=== PATIENT | male | born 1990 | race Caucasian/White ===

== ENCOUNTER → 2021-01-28 | Outpatient (CLI) | payer OTHER ==
[~2021-01-28] MED LIST: LORATIDINE 10 M10 M1 PO; PROTONIX40 M2 PO
== END ==
LOC: LAB 10:26
PROVIDERS: ATTEND Student in an Organized Health Care Education/Training Program
DX: Z20.822 Contact with and (suspected) exposure to COVID-19 (principal)

== ENCOUNTER 2021-01-31 06:06 | Observation (INO) | payer OTHER ==
[~2021-01-31] VITALS: Ht 180.3 cm; Wt 93.9 kg
--- NOTE | ~2021-01-31 | O ---
[facility] [place] [address] OPERATIVE REPORT Name: FRANCINE BAILEY Room #: 440-P [facility] MVonnie#: [id number] Admission: 01/31/21 Attend Phys: Job Garcia, Discharge: Date of : 89 Report #: [id number] THIS REPORT FOR: cc: Nicholas Holloway MD, Marc K. MD Patterson,Job Art MD ~ DATE OF SERVICE: 01/31/2021 PREOPERATIVE DIAGNOSIS: Hiatal hernia with gastroesophageal reflux disease. POSTOPERATIVE DIAGNOSIS: Hiatal hernia with gastroesophageal reflux disease. OPERATION: Laparoscopic repair of hiatal hernia without mesh implantation with placement of LINX antireflux device. SURGEON: Job Garcia MD ANESTHESIA: General. ESTIMATED BLOOD LOSS: Minimal. SPECIMENS: None. DESCRIPTION OF PROCEDURE: After informed consent was obtained, the patient was brought to the operating room and placed supine. SCDs were placed and working, preoperative antibiotics were administered, general anesthesia was induced. The abdomen was prepped and draped in the usual sterile fashion. A 1 mm incision was made in the left upper quadrant. Veress needle was inserted. Pneumoperitoneum was established. A periumbilical 5 mm trocar was then placed under direct vision. I then placed a left-sided 5 mm trocar. Two right-sided trocars were placed under direct vision. A Lincoln retractor was placed in the epigastrium. The Lincoln retractor then reflected the liver anteriorly and superiorly. This allowed visualization of the hiatus. The pars flaccida was incised. Cautery dissection was made up to the right norris, which was identified. Phrenoesophageal ligament was incised with the LigaSure. The left norris was identified. A Lam drain was placed around the distal esophagus. I then was able to manipulate the distal esophagus and perform a full mediastinal dissection, thereby reducing the hiatal hernia. There was approximately 2 cm of intraabdominal esophagus. A window was made between the esophagus and the posterior vagus nerve. Cruroplasty was then performed. This was done with a single 2-0 Ethibond suture reapproximating the crura posteriorly. A LINX sizer was placed. This was a size 15 LINX. The sizer was removed. A 15 LINX was placed between the posterior vagus nerve and the esophagus. It was [address] [address] OPERATIVE REPORT Name: LEOFRANCINE NELIA Room #: 440-P [facility] Norman De La Rosa#: [id number] Admission: 01/31/21 Attend Phys: Job Garcia, Discharge: Date of : 89 Report #: [id number] clasped together. The length was not too loose or tight. The liver was then placed back into its normal position. The ports were then removed under direct vision. The skin was closed with 4-0 Monocryl. Incisions were sealed with Steri-Strips. COMPLICATIONS: None. DISPOSITION: The patient was taken to recovery in satisfactory condition. By: [id number] Job Garcia MD /nt
[2021-01-31 06:57] LABS: HEMATOCRIT 43.3 % (42.0-52.0); HEMOGLOBIN 15.1 gm/dL (14.0-18.0); MCH 30.3 pg (26.0-34.0); MCHC 34.9 g/dL (28.0-37.0); MCV 86.6 fL (80.0-100.0); RDW 12.9 % (10.5-14.5); WBC 9.3 thou/uL (4.0-11.0)
[2021-01-31 07:11] LABS: CALCIUM 9.4 mg/dL (8.5-10.1); CREATININE 1.3 mg/dL (0.7-1.3); POTASSIUM 3.9 mmol/L (3.5-5.1)
[2021-01-31 07:22] VITALS: BP 139/96
--- NOTE | 2021-01-31 10:59 | NUR ---
ASSUMED PT CARE AT 1040 ON ARRIVAL FROM PACU. PT IS HERE FOR OBSERVATION AFTER HERNIA REPAIR. PT IS A/OX4 AND HAS NO COMPLAINTS AT THIS TIME. BP IS HYPERTENSIVE. LAP SITES X6 IN ABD WITH DERMABOND AND STERISTRIPS. ASSESSMENTS OTHERWISE UNREMARKABLE. IV IN LT FA WITH D5 1/2NS AT 100ML/HR. FALL PRECAUTIONS ARE IN PLACE. MEDS AND OTHER TX GIVEN NEEDED AND SCHEDULED.
[2021-01-31 19:40] VITALS: BP 143/90
--- NOTE | 2021-02-01 01:59 | NUR ---
ASSESSED AT START OF SHIFT. PT RESTING IN BED. C/O PAIN PO HYDROCODONE GIVEN. PT UP AD JCARLOS TO THE BATHROOM. ENCOURAGE AMBULATION. IV INTACT AND POST OP FLUID INFUSING. POSSIBLE DC TOMORROW. DENIES N/V WILL CONT WITH POC TILL EOS.
[2021-02-01 03:25] VITALS: BP 124/79
[2021-02-01 07:34] VITALS: BP 121/77
--- NOTE | 2021-02-01 09:17 | NUR ---
ASSUMED PT CARE THIS AM. PT IS ALERT & ORIENTED X4. PT HAS IV SITE ON L HAND SALINE LOCKED. PT HAS 6 LAP SITES WITH DERMABOND. PT IS ON ROOM AIR. PT C/O OF PAIN AND GIVEN PAIN MEDICATION PER PT REQUEST. PT TOLERATED DIET WELL THIS AM. NO C/O OF NAUSEA AND VOMITING. WILL CONTINUE TO MONITOR PT. FOLLOW POC.
[2021-02-01] MEDS ORDERED: NORCO5 PO (14:44)
[2021-02-01 14:52] VITALS: BP 121/77
== END 2021-02-01 15:25 | disposition home or self-care (01) ==
LOC: OR → TBA 06:13 → OR 07:29 → EDSTATUS 07:52 → OR 08:50 → 4S 10:43 → OR 10:43 → 4S 02-01 15:25
PROVIDERS: ADMIT Surgery; ATTEND Surgery
DX: K44.9 Diaphragmatic hernia without obstruction or gangrene (principal); K21.00 Gastro-esophageal reflux disease with esophagitis, without bleeding; F17.200 Nicotine dependence, unspecified, uncomplicated; Z79.899 Other long term (current) drug therapy
CPT/HCPCS: 50010; 50101; 50386; 50555; 51489; 52265; 52266; 53307; 53310; 56462; 56526; 56527; 57092; 58104; 58574; 58586; 58664; 58684; 62110; 62900; 70005